=== PATIENT | female | born 1990 | race African-American/Black ===

== ENCOUNTER 2017-07-01 10:57 | Emergency (ER) | payer MEDICAID, OTHER ==
[~2017-07-01] VITALS: Ht 165.1 cm; Wt 75.0 kg
[2017-07-01] MEDS ORDERED: OLANZAPINE 10 MG/VIAL IM ONE (12:00)
[2017-07-01] MEDS ORDERED: LORAZEPAM 2MG/ML CPJ IM ONE (12:00)
[2017-07-01 12:47] LABS: CLARITY URINE CLOUDY (CLEAR); COLOR URINE YELLOW (YELLOW); KETONES URINE NEGATIVE (NEGATIVE); LEUKOCYTE ESTERASE URINE TRACE (NEGATIVE); NITRITE URINE NEGATIVE (NEGATIVE); OCCULT BLOOD URINE NEGATIVE (NEGATIVE); PROTEIN URINE NEGATIVE (NEGATIVE); SPECIFIC GRAVITY URINE 1.007 (1.005-1.030); UROBILINOGEN URINE 0.2 E.U./dL (0.2-1.0)
[2017-07-01 12:58] LABS: *AMPHETAMINES SCREEN URINE NEGATIVE (NEGATIVE); *BARBITURATES SCREEN URINE NEGATIVE (NEGATIVE); *BENZODIAZEPINES SCREEN URINE NEGATIVE (NEGATIVE); *COCAINE SCREEN URINE NEGATIVE (NEGATIVE); CANNABINOID URINE SCREEN NEGATIVE (NEGATIVE); METHADONE URINE SCREEN NEGATIVE (NEGATIVE); OPIATES URINE SCREEN NEGATIVE (NEGATIVE); PHENCYCLIDINE URINE SCREEN NEGATIVE (NEGATIVE)
[2017-07-01] MEDS ORDERED: HALOPERIDOL LACTATE 5MG/ML VIAL IM ONE (13:15)
[2017-07-01 13:37] LABS: BASOPHILS % 0.6 % (0.0-2.0); EOSINOPHILS % 0.7 % (0.0-5.0); HEMATOCRIT. 39.6 % (36.0-48.0); HEMOGLOBIN. 13.1 g/dL (12.0-16.0); LYMPHOCYTES % 27.2 % (20.0-50.0); MEAN CORPUSCULAR HEMOGLOBIN 29.9 pg (28.0-32.0); MEAN CORPUSCULAR VOLUME 90.7 fL (81.0-99.0); MONOCYTES % 6.6 % (2.0-8.0); NEUTROPHILS % 64.9 % (40.0-76.0); PLATELET 219 x1000/uL (130-400); RED BLOOD CELL COUNT 4.37 mill/uL (4.2-5.4)
[2017-07-01 13:45] LABS: CHLORIDE 106 mEq/L (98-107)
[2017-07-01 13:48] LABS: HCG SCREEN NEGATIVE
[2017-07-01 13:50] LABS: ETHANOL BLOOD < 10 mg/dL
[2017-07-02] MEDS ORDERED: OLANZAPINE 5MG TABLET PO SCH (09:00)
[2017-07-02] MEDS ORDERED: LORAZEPAM 2MG/ML CPJ IM STA (09:16)
[2017-07-02] MEDS ORDERED: DIPHENHYDRAMINE 50MG/ML VIAL IM STA (09:16)
[2017-07-02] MEDS ORDERED: OLANZAPINE 10 MG/VIAL IM STA (09:16)
[2017-07-02] MEDS ORDERED: LORAZEPAM 1MG TABLET PO ONE (13:45)
[2017-07-02] MEDS ORDERED: OLANZAPINE 5MG TABLET PO NR (19:45)
[2017-07-02 19:51] VITALS: BP 115/62
== END 2017-07-02 21:26 ==
LOC: ER 11:01
DX: F29 Unspecified psychosis not due to a substance or known physiological condition (principal); F31.9 Bipolar disorder, unspecified
CPT/HCPCS: 36415; 80048; 80305; 80307; 80329; 81003; 84703; 85025; 93005; 96372; 99285; G0482; J1630; J2060; J3490

== ENCOUNTER 2017-07-26 11:23 | Emergency (ER) | payer MEDICAID | END 2017-07-26 16:53 | disposition left against medical advice (07) | LOC: ER 16:15 | DX: Z53.21 Procedure and treatment not carried out due to patient leaving prior to being seen by health care provider (principal) ==

== ENCOUNTER 2018-02-26 22:13 | Emergency (ER) | payer MEDICAID ==
[~2018-02-26] VITALS: Ht 167.6 cm; Wt 77.0 kg
[2018-02-27 05:05] VITALS: BP 118/59
== END 2018-02-27 07:00 | disposition left against medical advice (07) ==
LOC: ER 22:13
DX: F41.9 Anxiety disorder, unspecified (principal); F31.9 Bipolar disorder, unspecified; F20.9 Schizophrenia, unspecified; F17.200 Nicotine dependence, unspecified, uncomplicated; F14.10 Cocaine abuse, uncomplicated
CPT/HCPCS: 81025; 99284

== ENCOUNTER 2018-09-08 05:18 | Emergency (ER) | payer MEDICAID ==
[~2018-09-08] VITALS: Ht 170.2 cm; Wt 92.0 kg
[2018-09-08 05:19] VITALS: BP 114/71
[2018-09-08] MEDS ORDERED: LORAZEPAM 1MG TABLET PO ONE (06:00)
[2018-09-08 06:33] LABS: BASOPHILS % 0.6 % (0.0-2.0); HEMATOCRIT. 42.4 % (36.0-48.0); HEMOGLOBIN. 14.4 g/dL (12.0-16.0); LYMPHOCYTES % 29.5 % (20.0-50.0); MEAN CORPUSCULAR HEMOGLOBIN 31.1 pg (28.0-32.0); MEAN CORPUSCULAR VOLUME 92.1 fL (81.0-99.0); MEAN PLATELET VOLUME 11.6 fl (7.4-10.4); MONOCYTES % 8.4 % (2.0-8.0); NEUTROPHILS % 59.5 % (40.0-76.0); PLATELET 206 x1000/uL (130-400); RED BLOOD CELL COUNT 4.61 mill/uL (4.2-5.4); RED CELL DISTRIBUTION WIDTH 13.7 % (11.6-14.6)
[2018-09-08 06:40] LABS: CHLORIDE 107 mEq/L (98-107)
[2018-09-08 06:43] LABS: ETHANOL BLOOD < 10 mg/dL
== END 2018-09-08 06:31 | disposition left against medical advice (07) ==
LOC: ER 05:18
DX: R46.89 Other symptoms and signs involving appearance and behavior (principal); Z53.21 Procedure and treatment not carried out due to patient leaving prior to being seen by health care provider
CPT/HCPCS: 36415; 80320; G0480

== ENCOUNTER 2018-09-08 10:18 | Emergency (ER) | payer MEDICAID ==
[~2018-09-08] VITALS: Ht 172.7 cm; Wt 90.0 kg
[2018-09-08 17:10] VITALS: BP 135/72
== END 2018-09-08 17:12 | disposition home or self-care (01) ==
LOC: ER 10:18
DX: F32.9 Major depressive disorder, single episode, unspecified (principal); F12.10 Cannabis abuse, uncomplicated; F17.200 Nicotine dependence, unspecified, uncomplicated
CPT/HCPCS: 99284